=== PATIENT | male | born 1955 | race Caucasian/White ===

== ENCOUNTER 2023-05-09 06:19 | Outpatient (OUT) | payer BC, SELFPAY ==
[2023-05-09 07:30] LABS: Basophils Percent Auto 0.8 % (0.2-2.0); Eosinophils Absolute Auto 0.2 10^3/uL (0.0-0.7); Hematocrit 38.2 % (42.0-54.0); Hemoglobin 12.4 g/dL (14.0-18.0); Immature Granulocytes Abs Auto 0.04 10^3/uL (0.00-0.03); Immature Granulocytes Pct Auto 0.8 % (0.0-0.5); Lymphocytes Absolute Auto 1.9 10^3/uL (1.2-3.8); Lymphocytes Percent Auto 35.4 % (20.5-60.0); Mean Corpuscular HGB Conc 32.5 g/dL (29.9-35.2); Mean Corpuscular Volume 92.5 fL (80.0-94.0); Mean Platelet Volume 9.7 fL (9.5-13.5); Monocytes Absolute Auto 0.6 10^3/uL (0.3-0.8); Monocytes Percent Auto 11.8 % (1.7-12.0); Neutrophils Absolute Auto 2.5 10^3/uL (1.4-6.5); Neutrophils Percent Auto 48.2 % (43.0-75.0); Platelet Count 244 10^3/uL (150-450); Red Blood Count 4.13 10^6/uL (4.70-6.10); White Blood Count 5.3 10^3/uL (4.0-11.0)
[2023-05-09 11:16] LABS: Estimated Average Glucose 94 mg/dL; Glycohemoglobin A1C 4.9 % (4.5-6.2)
[2023-05-09 12:39] LABS: Prostate Specific Antigen Scrn 0.47 ng/mL (<=4.00)
[2023-05-09 13:10] LABS: Alanine Aminotransferase 28 U/L (16-63); Albumin Globulin Ratio 1.1; Alkaline Phosphatase 63 U/L (46-116); Anion Gap 12.3; Aspartate Amino Transferase 31 U/L (15-37); BUN Creatinine Ratio 7.5; Bilirubin Total 0.7 mg/dL (0.2-1.0); Carbon Dioxide 26.3 mmol/L (21.0-32.0); Chloride 100 mmol/L (98-107); Chol HDL Ratio 2.9; Cholesterol 147 mg/dL (<=200); Estimated GFR (African America >60 (>=60); Estimated GFR (Non-African Ame >60 (>=60); Globulin 3.5 g/dL; Glucose 75 mg/dL (74-106); HDL Cholesterol 51 mg/dL (40-60); Potassium 4.6 mmol/L (3.5-5.1); Sodium 134 mmol/L (136-145); Total Protein 7.5 g/dL (6.4-8.2); Triglycerides 75 mg/dL (<=150)
== END 2023-05-09 06:20 | disposition home or self-care (01) ==
LOC: LAB 06:24
PROVIDERS: PCP Family Medicine; Visit Provider Family Medicine
DX: Z79.899 Other long term (current) drug therapy (principal); E78.5 Hyperlipidemia, unspecified; R73.09 Other abnormal glucose; Z12.5 Encounter for screening for malignant neoplasm of prostate; R53.83 Other fatigue
CPT/HCPCS: 36415; 80053; 80061; 83036; 84153; 85025; G0103

== ENCOUNTER 2024-10-12 17:23 | Inpatient (IN) | payer MEDICARE, SELFPAY ==
[2024-10-12] VITALS (26 sets, daily range): BP systolic 148–193; BP diastolic 86–123; PULSE 55–96; TEMP 35.5–35.9; O2SAT 92–100; BMI 16.7; BMI 19.5
--- NOTE | 2024-10-12 17:43 | XR_ITS ---
The [address] [address] Patient Name: KRISTEN SILVA MRN: [id number] date: 1955 Sex: M Assigned Patient Location: ER Current Patient Location: ER Accession/Order Number: [id number] Exam Date: 10/12/2024 18:07 Report Date: 10/12/2024 19:51 At the request of: PRAVEENA BYERS Procedure: XR chest 1V CHEST X-RAY, 10/12/2024. HISTORY: Shortness of breath. Weakness. COMPARISON: CT chest, 10/12/2024. FINDINGS: Single view of the chest was obtained. There are bilateral pleural effusions, right greater than left. There is atelectasis in both lower lobes. Cardiomegaly. No pneumothorax. No evidence pneumonia. XR/XR chest 1V IMPRESSION: Cardiomegaly. Bilateral pleural effusions, right greater than left. There is atelectasis at both lung bases. Electronically authenticated by: LEANNE LITTLE Date: 10/12/2024 19:51
--- NOTE | 2024-10-12 17:43 | ECG_ITS ---
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
--- NOTE | 2024-10-12 17:46 | ED_ITS ---
HPI HPI - General Adult General Chief complaint: Shortness of Breath/Dyspnea Stated complaint: SOB WEAKNESS Time Seen by Provider: 10/12/24 17:34 Source: patient Mode of arrival: Wheelchair History of Present Illness HPI narrative: Patient is a 68-year-old male brought to the ER by family for evaluation of shortness of breath and generalized weakness he reports having pain all over states symptoms started about a week or 2 ago and have not improved. He admits to trouble with his insurance and has been off all of his medication including Plavix for claudication in his legs for the past several months. ( May 2024) Patient states when his respiratory symptoms developed with shortness of breath he started to cut back on his smoking. Patient denies any focal chest pain states he gets short of breath with exertion he appears very thin and cachectic admits to weight loss states he does not have an appetite and has not eaten much lately. Family at bedside visibly concerned about his wellbeing. Onset (ago): week(s) Related Data Allergies Allergy/AdvReac Type Severity Reaction Status Date / Time No Known Drug Allergies Allergy Verified 10/12/24 17:37 Opioid HPI Opioid Management Most Recent Opioid Data: Last NOV Pain Assessment 10/12/24 18:15 Review of Systems ROS Constitutional Reports: change in weight and fatigue; Denies: fever or chills Eyes Denies: change in vision Ears, nose, mouth, and throat Denies: throat pain or neck pain Cardiovascular Denies: chest pain, palpitations or edema Respiratory Reports: shortness of breath; Denies: cough Gastrointestinal Denies: abdominal pain, nausea, vomiting or diarrhea Genitourinary Denies: painful urination Musculoskeletal Reports: other (+ generalized myalgias) Integumentary/Breast Denies: rash Neurological Denies: headache Psychiatric Denies: anxiety Hematologic/Lymphatic Denies: easy bruising PFSH PFSH Social History Little interest or pleasure in doing things: not at all Feeling down, depressed, or hopeless: not at all Exam Narrative Exam Narrative: Nurses notes and vital signs reviewed and patient is not hypoxic. General: The patient appears ill, thin and cachectic. Skin: Warm, dry, no pallor noted but mild graf appearance Head: Normocephalic, atraumatic Neck: Supple, trachea mid-line, no tenderness, no lymphadenopathy Eye: Pupils are equal, round and reactive to light, EOMI Ears, Nose, Mouth, and Throat: TM are clear, normal light reflex, oral mucosa is dry, no posterior oropharynx erythema or hypertrophy, uvula is mid-line Cardiovascular: Regular Rate and Rhythm Respiratory: Patient is in no distress, no accessory muscle use, lungs are clear to auscultation but very diminished/ absent in bases. no wheezing, rales or rhonchi. Chest Wall: no tenderness Back: non-tender, no CVA tenderness Musculoskeletal: normal ROM, no tenderness, no swelling, Denies pain, notes pain in lower legs with exertions. denies any skin breakdown on toes or feet. GI: Normal bowel sounds, no tenderness to palpation, no masses appreciated. No rebound, guarding, or rigidity noted. Neurological: A&O x4 Psychiatric: Cooperative Constitutional Vital Signs, click to edit/add: Last Vital Signs Temp 96.7 F L 10/12/24 17:28 Pulse 71 10/12/24 20:20 Resp 15 10/12/24 20:20 BP 172/103 H 10/12/24 20:20 Pulse Ox 100 10/12/24 20:20 O2 Del Method Nasal Cannula 10/12/24 18:21 O2 Flow Rate 1.5 10/12/24 18:21 Course Vital Signs Vital signs: Vital Signs Temperature 96.7 F L 10/12/24 17:28 Pulse Rate 93 H 10/12/24 17:28 Respiratory Rate 24 H 10/12/24 17:28 Blood Pressure 160/115 H 10/12/24 17:28 Pulse Oximetry 98 10/12/24 17:28 Oxygen Delivery Method Room Air 10/12/24 17:28 Temperature 96.7 F L 10/12/24 17:28 Pulse Rate 71 10/12/24 20:20 Respiratory Rate 15 10/12/24 20:20 Blood Pressure 172/103 H 10/12/24 20:20 Pulse Oximetry 100 10/12/24 20:20 Oxygen Delivery Method Nasal Cannula 10/12/24 18:21 Oxygen Delivery Flow Rate 1.5 10/12/24 18:21 Medical Decision Making MDM Narrative Medical decision making narrative: Patient appears ill thin and frail admits to weight loss and being off his chronically prescribed medication for several months last seeing a vascular specialist in the fall 2023 he admits to generalized weakness and fatigue worsening symptoms over the past 2 weeks with some shortness of breath and generalized bodyaches. He is not hypoxic on room air Reevaluated after his breathing treatment noted breathing has improved, nurse has him on 1 to 2 L of bedside oxygen at rest. He appears in no respiratory distress we will hold on steroid as he is without wheezing at this time. Reviewed past medical record patient had a CTA of the chest and PET scan in 2021 noted for mediastinal mass and they recommended surveillance in 3 months, no further test passed this initial testing given patient's weight loss and Dyspnea symptoms. Asked patient about the follow-up to this test and he reports he was told there was no cancer and did not get any subsequent scans. Patient had manual blood pressures taken at 180/100 bilateral arms after CTA chest.. he has initiall BP 160/ 115, but then climbed 193/[address] Malhotra- ED attending given pleural effusion/ cardiomeagly and medialstinal mass., labetalol 10 mg given IV and 20 mg IV Lasix following review of CTA of the chest. repeat BP was 172/ 103 SPo2 remains 100%, HR 70. Patient reevaluated notes overall he feels improved but also was not exerting himself he notes he is tremendously weak even with lifting his leg up off the bed. We discussed his clinical presentation that he has been off his medication 17 May cardiomegaly, CHF and pleural effusions recommend admission for inpatient hospitalization and further treatment. He has seen Dr. Curtis in the past, and pcp is Dr. Ward. Case was discussed with the night hospitalist Ophelia who is agreeable with admission. Differential Diagnosis Differential Diagnosis: COPD, Lung CA, CHF, PE, Acute coronary syndrome Medical Records Medical records reviewed: Yes I reviewed the patient's medical records Medical records narrative: KRISTEN SILVA MRN: [id number] date: 1955 Sex: M Assigned Patient Location: MAIN Current Patient Location: MAIN Accession/Order Number: [id number] Exam Date: 02/18/2022 07:56 Report Date: 02/20/2022 14:19 At the request of: RAMY CURTIS Procedure: PET CT SKULL BASE MID THIGH NUCLEAR MEDICINE PET/CT HISTORY: Anterior mediastinal mass. COMPARISON: CT chest 01/23/2022. METHOD: 12.84 mCi of F-18 FDG was administered intravenously. Blood sugar level at the time of the injection: 84. At 52 minutes from injection, PET images were obtained from the skull base through the midthigh levels in the axial plane. Reformatted images were performed in the sagittal and coronal planes. A low-dose, noncontrast CT scan was performed for attenuation correction and anatomical localization. A low dose, noncontrast and nondiagnostic CT scan was performed for attenuation correction and anatomic localization. Mediastinal blood pool SUV max 2.0 using the patient's body weight as the normalization method. FINDINGS: HEAD AND NECK: There are no metabolically active lymph nodes in the neck. There is right maxillary sinus mucosal thickening. CHEST: There are no metabolically active mediastinal, hilar, or axillary lymph nodes. There is a nonmetabolically active anterior mediastinal mass measuring 2.2 x 1.7 cm. There are minimally metabolically active partially calcified hilar and mediastinal lymph nodes. The major airways are patent. There is no pericardial effusion. There is no evidence of abnormal metabolic uptake in the esophagus. There are coronary artery calcifications. There are emphysematous changes. There is no evidence of abnormal metabolic uptake in the lung parenchyma. There are no pleural effusions. There is no pneumothorax. ABDOMEN AND PELVIS: There is no evidence of abnormal metabolic activity in the liver or adrenal glands. There is no evidence of abnormal metabolic active lymph nodes in the abdomen or pelvis. There is no free fluid. There is physiologic uptake in the urinary system and bowel. MUSCULOSKELETAL: There is no evidence of abnormal metabolically active bony lesions. IMPRESSION: Nonmetabolically active anterior mediastinal mass measuring 2.2 x 1.7 cm. Minimally metabolically active partially calcified hilar and mediastinal lymph nodes most likely representing granulomatous disease. Recommend follow-up CT chest with contrast in 3 months to confirm. stability. Emphysema. Coronary artery calcifications. Electronically authenticated by: DINAH NERI Date: 2022-02-20 14:19 Electronically authenticated by: DINAHC.D. Barkley Insurance AgencyZAIDA Date: 02/20/2022 14:19 Lab Data Lab results reviewed: Yes I reviewed the patient's lab results Labs: Lab Results 10/12/24 10/12/24 10/12/24 Range/Units 17:52 17:58 19:33 WBC 7.7 (4.0-11.0) 10^3/uL RBC 4.63 L (4.70-6.10) 10^6/uL Hgb 13.5 L (14.0-18.0) g/dL Hct 39.2 L (42.0-54.0) % MCV 84.7 (80.0-94.0) fL MCH 29.2 (25.9-34.0) pg MCHC 34.4 (29.9-35.2) g/dL RDW 13.8 (11.0-15.0) % Plt Count 276 (150-450) 10^3/uL MPV 10.4 (9.5-13.5) fL Neut % (Auto) 72.5 (43.0-75.0) % Lymph % (Auto) 18.6 L (20.5-60.0) % Mitchell % (Auto) 8.1 (1.7-12.0) % Eos % (Auto) 0.1 L (0.9-7.0) % Baso % (Auto) 0.3 (0.2-2.0) % Neut # (Auto) 5.6 (1.4-6.5) 10^3/uL Lymph # (Auto) 1.4 (1.2-3.8) 10^3/uL Mitchell # (Auto) 0.6 (0.3-0.8) 10^3/uL Eos # (Auto) 0.0 (0.0-0.7) 10^3/uL Baso # (Auto) 0.0 (0.0-0.1) 10^3/uL Abs Immat Gran (auto) 0.03 (0.00-0.03) 10^3/uL Imm/Tot Granulo (auto) 0.4 (0.0-0.5) % PT 14.0 H (9.0-11.6) sec INR 1.36 APTT 28.3 (22.3-36.2) sec D-Dimer 1.21 H* (<=0.59) mg/L FEU Sodium 128 L (136-145) mmol/L Potassium 3.5 (3.5-5.1) mmol/L Chloride 92 L (98-107) mmol/L Carbon Dioxide 21.4 (21.0-32.0) mmol/L Anion Gap 18.1 BUN 11.0 (7.0-18.0) mg/dL Creatinine 0.97 (0.70-1.30) mg/dL Est GFR ( Amer) >60 (>=60 mL/min/1.73m^2) Est GFR (Non-Af Amer) >60 (>=60 mL/min/1.73m^2) BUN/Creatinine Ratio 11.3 Glucose 116 H (74-106) mg/dL Calcium 8.8 (8.5-10.1) mg/dL Total Bilirubin 0.9 (0.2-1.0) mg/dL AST 33 (15-37) U/L ALT 29 (16-63) U/L Alkaline Phosphatase 87 (46-116) U/L Troponin I High Sens 31.6 31.7 (4.0-76.1) pg/mL NT-Pro-B Natriuret Pep >45619.0 H* (<=900.0) pg/mL Total Protein 6.7 (6.4-8.2) g/dL Albumin 3.3 L (3.4-5.0) g/dL Globulin 3.4 g/dL Albumin/Globulin Ratio 1.0 Lipase 17.0 (16.0-77.0) U/L Free T4 1.33 (0.76-1.46) ng/dL TSH & Free T4 Interp 4.540 H (0.358-3.740) uIU/mL Influenza Type A Ag Negative Influenza Type B Ag Negative SARS-CoV-2 Ag (CV2AG) Negative (NEGATIVE) Imaging Data CT scan - chest: Radiologist's impression: ITS Impressions Chest X-Ray 10/12/24 17:43 IMPRESSION: Cardiomegaly. Bilateral pleural effusions, right greater than left. There is atelectasis at both lung bases. Electronically authenticated by: LEANNE LITTLE Date: 10/12/2024 19:51 Chest CTA 10/12/24 18:31 IMPRESSION: No CT findings to suggest pulmonary embolism. Findings of CHF, including cardiomegaly, perihilar pulmonary edema and moderate pleural effusions. Electronically authenticated by: RAMONA BONILLA Date: 10/12/2024 19:34 ECG Data Attestation: I personally reviewed and interpreted this ECG as follows: Interpretation: EKG interpretation: Emergency Department physician interpretation, normal sinus rhythm 91 bpm , no ectopy, no ST segment elevation, T wave inversion noted in the lateral leads normal axis. Discharge Plan Discharge Chief Complaint: Shortness of Breath/Dyspnea Clinical Impression: Acute dyspnea, Congestive heart failure, Pleural effusion, Mediastinal mass, Tobacco abuse, Hyponatremia Patient Disposition: Admitted As Inpatient Time of Disposition Decision: 20:25 Condition: Fair
[2024-10-12 18:06] LABS: Basophils Percent Auto 0.3 % (0.2-2.0); Eosinophils Percent Auto 0.1 % (0.9-7.0); Hematocrit 39.2 % (42.0-54.0); Hemoglobin 13.5 g/dL (14.0-18.0); Immature Granulocytes Abs Auto 0.03 10^3/uL (0.00-0.03); Immature Granulocytes Pct Auto 0.4 % (0.0-0.5); Lymphocytes Absolute Auto 1.4 10^3/uL (1.2-3.8); Lymphocytes Percent Auto 18.6 % (20.5-60.0); Mean Corpuscular HGB Conc 34.4 g/dL (29.9-35.2); Mean Corpuscular Hemoglobin 29.2 pg (25.9-34.0); Mean Corpuscular Volume 84.7 fL (80.0-94.0); Mean Platelet Volume 10.4 fL (9.5-13.5); Monocytes Absolute Auto 0.6 10^3/uL (0.3-0.8); Monocytes Percent Auto 8.1 % (1.7-12.0); Neutrophils Absolute Auto 5.6 10^3/uL (1.4-6.5); Neutrophils Percent Auto 72.5 % (43.0-75.0); Platelet Count 276 10^3/uL (150-450); Red Blood Count 4.63 10^6/uL (4.70-6.10); Red Cell Distribution Width 13.8 % (11.0-15.0); White Blood Count 7.7 10^3/uL (4.0-11.0)
[2024-10-12] MEDS: 0.9 % SODIUM CHLORIDE 1,000 ML 999 ML IV (18:15)
[2024-10-12] MEDS: ACETAMINOPHEN 500 MG TABLET 1000 MG PO (18:15)
[2024-10-12 18:17] LABS: Influenza Virus A Antigen Negative; Influenza Virus B Antigen Negative; Internal Control Within Normal Limits; SARS-CoV-2 Ag NEGATIVE (NEGATIVE)
[2024-10-12] MEDS: IPRATROPIUM/ALBUTEROL SULFATE 3 ML AMPUL.NEB IH (18:19)
[2024-10-12 18:21] LABS: INR 1.36; Partial Thromboplastin Time 28.3 sec (22.3-36.2)
[2024-10-12 18:29] LABS: Alanine Aminotransferase 29 U/L (16-63); Albumin Level 3.3 g/dL (3.4-5.0); Alkaline Phosphatase 87 U/L (46-116); Anion Gap 18.1; Aspartate Amino Transferase 33 U/L (15-37); BUN Creatinine Ratio 11.3; Bilirubin Total 0.9 mg/dL (0.2-1.0); Calcium 8.8 mg/dL (8.5-10.1); Carbon Dioxide 21.4 mmol/L (21.0-32.0); Chloride 92 mmol/L (98-107); Estimated GFR (African America >60 (>=60 mL/min/1.73m^2); Estimated GFR (Non-African Ame >60 (>=60 mL/min/1.73m^2); Globulin 3.4 g/dL; Glucose 116 mg/dL (74-106); Potassium 3.5 mmol/L (3.5-5.1); Sodium 128 mmol/L (136-145); Total Protein 6.7 g/dL (6.4-8.2); Troponin I High Sensitivity 31.6 pg/mL (4.0-76.1)
[2024-10-12 18:31] LABS: NT Pro B Type Natriuretic Pept >35000.0 pg/mL (<=900.0)
--- NOTE | 2024-10-12 18:31 | CT_ITS ---
The [address] [address] Patient Name: KRISTEN SILVA MRN: [id number] date: 1955 Sex: M Assigned Patient Location: ER Current Patient Location: Accession/Order Number: [id number] Exam Date: 10/12/2024 18:55 Report Date: 10/12/2024 19:34 At the request of: PRAVEENA BYERS Procedure: CT angio chest EXAM: CT angio chest HISTORY: r/o PE COMPARISON: None. TECHNIQUE: CT angiography of the chest was performed without IV contrast followed by IV contrast, including 3D post processing CTA image reconstruction. CT dose reduction technique was used, including Automated Exposure Control. FINDINGS: Diagnostic quality: Adequate There is no evidence for pulmonary embolism. The heart is significantly enlarged. There is no pericardial effusion. There are no abnormally enlarged hilar or mediastinal lymph nodes. Coronary arteries: Heavy coronary calcifications. The central tracheobronchial tree is clear. Moderate bilateral pleural effusions, with subjacent compressive atelectasis. Mild perihilar pulmonary edema. There is mild centrilobular emphysema. The pulmonary artery is enlarged suggesting pulmonary hypertension. Heavy calcifications of the descending thoracic aorta and partially visualized upper abdominal aorta. No acute process identified in the visualized upper abdomen. No destructive osseous changes are seen. Redemonstrated is an anterior mediastinal mass, measuring 29 x 19 mm, as described on prior PET/CT from 02/18/2022, shown to be not metabolically active. CT/CT angio chest IMPRESSION: No CT findings to suggest pulmonary embolism. Findings of CHF, including cardiomegaly, perihilar pulmonary edema and moderate pleural effusions. Electronically authenticated by: RAMONA BONILLA Date: 10/12/2024 19:34
[2024-10-12 18:32] LABS: D Dimer 1.21 mg/L FEU (<=0.59)
[2024-10-12 19:13] LABS: Free T4 1.33 ng/dL (0.76-1.46)
[2024-10-12] MEDS: LABETALOL HCL 20 MG/4 ML SYRINGE 10 MG IVP (20:01)
[2024-10-12] MEDS: FUROSEMIDE 20 MG/2 ML VIAL IVP (20:01)
[2024-10-12 20:07] LABS: Troponin I High Sensitivity 31.7 pg/mL (4.0-76.1)
--- NOTE | 2024-10-12 22:45 | PC.NURSE ---
Patient has a ulcer on left great toe. Area scabbed, blackened and scant amount of purulent drainage noted. Area cleaned with 50/50 peroxide, saline mix. 4x4 applied and wrapped loosely.
[2024-10-12] MEDS: METOPROLOL SUCCINATE 25 MG TAB.ER.24H PO (23:07)
[2024-10-12] MEDS: ENOXAPARIN SODIUM 40 MG/0.4 ML SYRINGE SUBQ (23:07)
[2024-10-12] MEDS: CLOPIDOGREL BISULFATE 75 MG TABLET PO (23:07)
[2024-10-12] MEDS: ATORVASTATIN CALCIUM 40 MG TABLET 80 MG PO (23:07)
[2024-10-13] VITALS (22 sets, daily range): BP systolic 102–181; BP diastolic 42–99; PULSE 55–77; TEMP 36.3–36.6; O2SAT 92–98
--- NOTE | 2024-10-13 05:00 | ECG_ITS ---
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1955 Requested By: ANDREAS DAVIS Order Number: [id number] Reading MD: ANDREAS DAVIS Measurements Intervals [place] Rate: 71 P: 76 [place]: 174 QRS: 81 QRSD: 110 T: 258 QT: 449 QTc: 489 Interpretive Statements SINUS RHYTHM WITH FREQUENT SUPRAVENTRICULAR PREMATURE COMPLEXES POSSIBLE LEFT ATRIAL ENLARGEMENT [-0.1mV P WAVE IN V1/V2] ST DEVIATION AND MODERATE T-WAVE ABNORMALITY, CONSIDER LATERAL ISCHEMIA [-0.1+ mV T WAVE IN I/aVL/V5/V6] ST DEVIATION AND MODERATE T-WAVE ABNORMALITY, CONSIDER INFERIOR ISCHEMIA [-0.1+ mV T WAVE IN II/aVF] Compared to ECG 10/12/2024 17:35:58 T-wave abnormality now present ST (T wave) deviation no longer present Possible ischemia still present Electronically Signed On 10-13-2024 13:34:39 EST by ANDREAS DAVIS
[2024-10-13 05:06] LABS: Basophils Percent Auto 0.4 % (0.2-2.0); Eosinophils Percent Auto 0.6 % (0.9-7.0); Hematocrit 37.3 % (42.0-54.0); Hemoglobin 13.3 g/dL (14.0-18.0); Immature Granulocytes Abs Auto 0.02 10^3/uL (0.00-0.03); Immature Granulocytes Pct Auto 0.4 % (0.0-0.5); Lymphocytes Absolute Auto 1.1 10^3/uL (1.2-3.8); Lymphocytes Percent Auto 20.6 % (20.5-60.0); Mean Corpuscular HGB Conc 35.7 g/dL (29.9-35.2); Mean Corpuscular Hemoglobin 30.2 pg (25.9-34.0); Mean Corpuscular Volume 84.6 fL (80.0-94.0); Mean Platelet Volume 10.7 fL (9.5-13.5); Monocytes Absolute Auto 0.6 10^3/uL (0.3-0.8); Monocytes Percent Auto 10.6 % (1.7-12.0); Neutrophils Absolute Auto 3.6 10^3/uL (1.4-6.5); Neutrophils Percent Auto 67.4 % (43.0-75.0); Platelet Count 276 10^3/uL (150-450); Red Blood Count 4.41 10^6/uL (4.70-6.10); White Blood Count 5.3 10^3/uL (4.0-11.0)
[2024-10-13 05:34] LABS: Alanine Aminotransferase 23 U/L (16-63); Albumin Level 2.8 g/dL (3.4-5.0); Alkaline Phosphatase 82 U/L (46-116); Aspartate Amino Transferase 20 U/L (15-37); BUN Creatinine Ratio 10.8; Bilirubin Total 0.9 mg/dL (0.2-1.0); Calcium 8.3 mg/dL (8.5-10.1); Carbon Dioxide 23.6 mmol/L (21.0-32.0); Chloride 96 mmol/L (98-107); Estimated GFR (African America >60 (>=60 mL/min/1.73m^2); Estimated GFR (Non-African Ame >60 (>=60 mL/min/1.73m^2); Globulin 2.8 g/dL; Glucose 91 mg/dL (74-106); Magnesium 1.6 mg/dL (1.8-2.4); Sodium 131 mmol/L (136-145); Total Protein 5.6 g/dL (6.4-8.2)
[2024-10-13 05:38] LABS: NT Pro B Type Natriuretic Pept >35000.0 pg/mL (<=900.0); Potassium 2.6 mmol/L (3.5-5.1)
--- NOTE | 2024-10-13 07:19 | CA_ITS ---
Patient Name: KRISTEN SILVA MR#: [id number] : 1955 Exam Date: 10/13/2024 Ordering Doctor: DR Shiva Ward . ECHOCARDIOGRAM REPORT PROCEDURE: CA ECHO DOPPLER COMPLETE INDICATIONS: Dyspnea COMPARISON: None. DESCRIPTION: COMPLETE ECHOCARDIOGRAM Real-time transthoracic echocardiography with 2D, M-mode, spectral and color flow Doppler performed. QUALITY: Technical quality was good. LEFT VENTRICLE: Normal chamber size. Mild concentric left ventricular hypertrophy. LV EF: Global left ventricular systolic function is severely reduced; visually estimated ejection fraction is 20 to 25%. Global hypokinesis. DIASTOLIC: Grade 2 diastolic dysfunction. E/E' consistent with volume overload ATRIAL SEPTUM: Visually appears intact. LEFT ATRIUM: Severe dilatation. RIGHT ATRIUM: Mild dilatation. RIGHT VENTRICLE: Normal chamber size. Decreased right ventricular systolic function. TRICUSPID VALVE: Normal mobility and thickness. Mild regurgitation. No evidence of pulmonary hypertension. RVSP 33mmHg MITRAL VALVE: Mildly thickened with normal mobility. No evidence of mitral valve stenosis. Mild mitral annular calcification. Mild mitral regurgitation. AORTIC VALVE: Normal trileaflet appearance. No visible sclerosis. Normal leaflet mobility. No evidence of aortic valve stenosis. Trivial aortic regurgitation. AORTIC ROOT: Normal diameter and appearance. PULMONIC VALVE: Normal thickness and mobility. No stenosis. Mild regurgitation. PERICARDIUM: Small pericardial effusion posterior to the right atrium. IVC: Collapses with inspirations. Normal size. PLEURA: A pleural effusion is seen. CONCLUSION: 1. Global left ventricular systolic function is severely reduced; visually estimated ejection fraction is 20 to 25% 2. Mild left ventricular hypertrophy 3. Grade 2 diastolic dysfunction 4. E/E' consistent with volume overload 5. Normal right ventricular size with reduced systolic function 6. Biatrial dilatation 7. Mild tricuspid regurgitation 8. Mild mitral regurgitation 9. Mild pulmonic regurgitation 10. Small pericardial effusion is seen posterior to the right atrium 11. A pleural effusion is seen Adult Echocardiography Procedure Report Left Ventricle LVEDD (3.7 - 5.6 cm): 5.54 cm LVESD (2.2 - 4.0 cm): 4.80 cm LVIVS thickness (0.6 - 1.2 cm): 1.13 cm LVPW thickness (0.5 - 1.0 cm): 1.23 cm e': 0.06 m/s E - e': 12.88 LVOT Max Gradient: 0.70 mm[Hg] LVOT Area (cm2): 0.42 m/s Peak Velocity (LVOT): 0.42 m/s Mean Velocity (LVOT): 0.29 m/s LVOT Diameter 2.01 cm Left Ventricular Ejection Fraction: 32.71 % Left Atrium LA Volume Index (2D A2C): 63.03 ml/m2 Left Atrium Systolic Dimension: 4.66 cm Mitral Valve MV E to A Ratio: 1.73 Mitral Valve A-Wave Peak Velocity: 0.41 m/s Mitral Valve E-Wave Peak Velocity: 0.71 m/s Right Ventricle RV Internal Diastolic Dimension: 3.62 cm Aorta AO Root Diam: 3.61 cm Ascending Ao Diam: 2.61 cm Aortic Valve AoV Area (Peak Aman): 1.80 cm2, 1.80 cm2 AoV Area (VTI): 1.69 cm2, 1.69 cm2 Peak Velocity(Antegrade Flow): 0.74 m/s Peak Gradient(Antegrade Flow): 2.18 mm[Hg] Mean Velocity(Antegrade Flow): 0.50 m/s Mean Gradient(Antegrade Flow): 1.14 mm[Hg] Velocity Time Integral: 15.84 cm Tricuspid Valve Peak Velocity (Regurgitant Flow): 2.73 m/s, 2.59 m/s, 2.51 m/s Pulmonic Valve Peak Velocity: 0.59 m/s Peak Gradient: 1.71 mm[Hg], 1.13 mm[Hg] Right Atrium Right Atrium Systolic Pressure: 74.58 ml, 74.58 ml Dictated by: Freeman Bazan M.D. on 10/13/2024 at 12:41 Approved by: Freeman Bazan M.D. on 10/13/2024 at 12:46
--- NOTE | 2024-10-13 07:24 | P.HP_ITS ---
HPI H&P: HPI History of Present Illness Chief complaint: SOB WEAKNESS, CHF, HYPONATREMIA, PLEURAL EFFUSIONS Narrative: Patient presented to emergency room with increasing shortness of breath, found to have significant acute systolic heart failure, confirmed on CT scan and lab results, uncertain how long this is really been going on for probably greater than a month, also foot ulcer noted. When I saw patient up in the medical surgical floor, he was resting comfortably in bed, no significant conversational dyspnea, cough throughout the evaluation of, also patient describes not able to feel his feet. This been going on for quite some time as well. Opioid HPI Opioid Management Most Recent Pain and Opioid Data: Last Pain Assessment 10/13/24 07:19 Last MAR Pain Assessment 10/12/24 18:15 Last ORT Total Score 0 10/12/24 21:17 10/12/24 Last ORT Risk Category Low Risk 10/12/24 21:17 10/12/24 Review of Systems ROS Status of ROS 10 or more systems reviewed and unremark able except as noted in history and below PFSH PFSH Family History (Updated 10/12/24 @ 21:57 by Altagracia Beach RN) Mother Family history of cancer Father Family history of cancer Social History (Updated 10/12/24 @ 22:00 by Altagracia Beach RN) Within the past year, how often did you have a drink containing alcohol: 4 or more times a week Within the past year, how many standard drinks containing alcohol did you have on a typical day: 3 or 4 Within the past year, how often did you have six or more drinks on one occasion: never Total score: 2 Score interpretation: A score of 4 or more indicates drinking is likely to affect patient's safety. Smoking status: Current every day smoker Non-prescribed substance use: cannabis (any form) Known occupational exposures/hazards: Yes Known occupational exposures/hazards details: [facility] Highest level of school completed/degree received: high school graduate Are you now , , , , never or living with a partner: Little interest or pleasure in doing things: several days Feeling down, depressed, or hopeless: several days Feel stressed/tense/nervous/anxious/difficulty sleeping: to some extent Do you think of yourself as: straight/heterosexual Gender Identity: male Meds Home Medications and Allergies Home Medications ?Medication ?Instructions ?Recorded ?Confirmed ?Type atorvastatin 80 mg tablet 80 mg PO QDAY 10/12/24 10/12/24 History clopidogrel 75 mg tablet 75 mg PO QDAY 10/12/24 10/12/24 History lansoprazole 30 mg capsule,delayed 30 mg PO DAILY 10/12/24 10/13/24 History release Allergies Allergy/AdvReac Type Severity Reaction Status Date / Time No Known Drug Allergies Allergy Verified 10/12/24 17:37 Exam Constitutional Vital Signs, click to edit/add: Last Vital Signs Temp 97.7 F 10/13/24 06:37 Pulse 68 10/13/24 06:37 Resp 18 10/13/24 06:37 BP 171/81 H 10/13/24 06:37 Pulse Ox 95 10/13/24 06:37 O2 Del Method Nasal Cannula 10/13/24 06:37 O2 Flow Rate 1 10/13/24 06:37 Documenting provider has reviewed patient's vital signs: yes Common normals: no apparent distress (Cough throughout the evaluation) Chest Common normals: inspection of chest normal Respiratory Common normals: normal respiratory effort (Cough throughout the evaluation), no retractions, no use of accessory muscles and clear to auscultation bilaterally Effort & inspection: able to speak in complete sentences Auscultation: diminished lung sounds Cardio Common normals: regular rate and regular rhythm GI Common normals: Normal to inspection, nondistended, normoactive bowel sounds present and soft to palpation; tender (Epigastric tenderness) Extremity Common normals: abnormal to inspection (Left foot wound, dressing in place) Results Labs Labs: Short CBC 10/12/24 10/13/24 Range/Units 17:52 04:40 WBC 7.7 5.3 (4.0-11.0) 10^3/uL Hgb 13.5 L 13.3 L (14.0-18.0) g/dL Hct 39.2 L 37.3 L (42.0-54.0) % Plt Count 276 276 (150-450) 10^3/uL BMP 10/12/24 10/13/24 17:52 04:40 Sodium 128 L 131 L Potassium 3.5 2.6 L* Chloride 92 L 96 L Carbon Dioxide 21.4 23.6 BUN 11.0 10.0 Creatinine 0.97 0.93 Glucose 116 H 91 Calcium 8.8 8.3 L Liver Function 10/12/24 10/13/24 Range/Units 17:52 04:40 Total Bilirubin 0.9 0.9 (0.2-1.0) mg/dL AST 33 20 (15-37) U/L ALT 29 23 (16-63) U/L Alkaline Phosphatase 87 82 (46-116) U/L Albumin 3.3 L 2.8 L (3.4-5.0) g/dL Assessment and Plan Assessment and Plan (1) Hyponatremia: (2) Pleural effusion: (3) Congestive heart failure: (4) Acute dyspnea: (5) Foot ulcer: Plan Admission findings: Sinus tachycardia, respiratory distress, uncontrolled hypertension, hyponatremia, hypokalemia, hypomagnesemia with an elevated BNP and bilateral pleural effusions right greater than left Acute systolic heart failure with hypertensive urgency-patient currently on supplemental oxygen but no documented desaturations, we will work on that this morning, diuresed with IV Bumex, check echocardiogram, Hypertensive urgency-add metoprolol and lisinopril, bump up doses from initial starting dosing, add Imdur, as needed hydralazine Left foot ulcer-consult to wound, start IV antibiotics Mild COPD with acute mild exacerbation-does have sputum production we will check on culture, but lung exam was clear LVH-check echocardiogram Bilateral pleural effusion secondary to the acute systolic heart failure- diuresing as outlined above Hyponatremia on admission-improved this morning Hypokalemia-deteriorated this morning, IV potassium and repeat Chem-8 later on this afternoon for likely repeat IV bolus dosing and starting on oral medications this morning Hypomagnesemia-supplement Elevated TSH but T4 is normal-would hold off on treatment at this time Iron deficiency anemia-monitor daily Acute epigastric tenderness-changed to Protonix Peripheral vascular disease-restarting Plavix Peripheral neuropathy-outpatient workup Hypercholesterolemia-continue with home medications Mediastinal mass redemonstrated on CT scan-this was worked up prior with a PET scan showing not metabolically active, and is unchanged Admission status: Patient with significant dyspnea and bilateral pleural effusions with hypertensive urgency, significant elevated BNP within normal troponin, medically necessary treatment will span 2 midnights. Inpatient status.
--- NOTE | 2024-10-13 07:49 | XR_ITS ---
The [address] [address] Patient Name: KRISTEN SILVA MRN: [id number] date: 1955 Sex: M Assigned Patient Location: [place] Current Patient Location: [place] Accession/Order Number: [id number] Exam Date: 10/13/2024 08:00 Report Date: 10/13/2024 08:26 At the request of: ANDREAS DAVIS Procedure: XR foot LT min 3V PROCEDURE: XR foot LT min 3V HISTORY: foot ulcer ; ulcer near first digit COMPARISON: None. FINDINGS: BONES:Osseous irregularity and loss of cortical margin at the medial base of the first distal phalanx concerning for osteomyelitis. Moderate degenerative changes of the first metatarsophalangeal joint and mild bunion formation. SOFT TISSUES:Skin surface irregularity distal medial first toe which may represent site of ulceration. EFFUSION:None visible. OTHER: Negative. XR/XR foot LT min 3V IMPRESSION: 1. Suspect soft tissue ulceration of distal medial first toe with underlying osteomyelitis of first distal phalanx. Electronically authenticated by: MATT URIAS Date: 10/13/2024 08:26
--- NOTE | 2024-10-13 08:41 | CM.NOTE ---
Important Message From Medicare discussed with pt, pt verbalizes understanding and signs paper. Original given to pt and copy placed in pt's chart.
[2024-10-13 09:15] LABS: Bilirubin Urine NEGATIVE (NEGATIVE); Blood Urine NEGATIVE (NEGATIVE); Clarity Urine CLEAR (CLEAR); Color Urine LT. YELLOW (YELLOW); Glucose Urine UA NEGATIVE (NEGATIVE); Ketones Urine NEGATIVE (NEGATIVE); Leukocyte Esterase Urine NEGATIVE (NEGATIVE); Nitrite Urine NEGATIVE (NEGATIVE); Protein Urine NEGATIVE (NEG/TRACE); Specific Gravity Urine <=1.005 (1.005-1.025)
[2024-10-13 09:25] LABS: Bacteria Urine NONE SEEN #/HPF (NONE SEEN); Cast Seen? NONE SEEN #/LPF (NONE SEEN); Crystals Seen? None Seen #/HPF (None Seen); Mucus Urine NONE SEEN (NONE SEEN); RBC Urine NONE SEEN #/HPF (0-2); Squamous Epithelial Cell Urine NONE SEEN #/LPF (NONE/RARE); WBC Urine 0-2 #/HPF (NONE SEEN)
[2024-10-13] MEDS: POTASSIUM CHLORIDE 40 MEQ in 0.9 % SODIUM CHLORIDE 250 ML 67.5 MEQ IV (09:37)
[2024-10-13] MEDS: BUMETANIDE 10 MG in 0.9 % SODIUM CHLORIDE 160 ML 20 MG IV (09:37)
[2024-10-13] MEDS: JUVEN PACKET 1 PACKET PO (09:44)
[2024-10-13] MEDS: SPIRONOLACTONE 25 MG TABLET PO (09:44)
[2024-10-13] MEDS: ISOSORBIDE MONONITRATE 30 MG TAB.ER.24H PO (09:44)
[2024-10-13] MEDS: CLOPIDOGREL BISULFATE 75 MG TABLET PO (09:44)
[2024-10-13] MEDS: MAGNESIUM OXIDE 400 MG TABLET PO ×2 (09:44→21:03)
[2024-10-13] MEDS: METOPROLOL TARTRATE 50 MG TABLET PO ×2 (09:44→21:03)
[2024-10-13] MEDS: POTASSIUM CHLORIDE 10 MEQ ER TABLET 20 MEQ PO ×2 (09:44→21:03)
[2024-10-13] MEDS: LISINOPRIL 5 MG TABLET 10 MG PO (09:45)
[2024-10-13] MEDS: ENSURE HP 237 ML LIQUID PO ×2 (09:45→21:03)
[2024-10-13] MEDS: PANTOPRAZOLE SODIUM 40 MG VIAL IV (09:47)
--- NOTE | 2024-10-13 10:42 | PC.NURSE ---
dressing removed from left gr toe...large callous on side of toe. No drainage. pt states its never had anything drip off of it ever Toe squeezed and still no drng at this time. Dressing reapplied.
[2024-10-13] MEDS: VANCOMYCIN HCL 1,000 MG in 0.9 % SODIUM CHLORIDE 250 ML 250 MG IV (13:26)
--- NOTE | 2024-10-13 13:51 | SWNOTE1 ---
SW attempted to see pt, pt sleeping. SW to stop back.
--- NOTE | 2024-10-13 14:18 | P.CN_ITS ---
Consult Note: [facility] Data of Consult Consult date: 10/13/24 Requesting Physician: Shiva Ward MD Primary Care Provider: Shiva Ward MD Consult Narrative Reason for consult: Left hallux ulcer Narrative: Patient is a 68-year-old male with multiple medical core morbidities admitted for heart failure. He relates to numbness in bilateral feet and does not see a energy conservation representative. He relates to having the wound on his great toe for some time but unsure how long. He denies signs of infection to the area including redness, drainage, swelling and pain. He relates that he is supposed to see Dr. Bergeron from vascular surgery but cannot recall who made this referral. X-rays obtained upon admission show cortical changes to the distal phalanx of the great toe concerning for osteomyelitis. Patient relates to cough and shortness of breath, lack of energy but denies nausea, vomiting, fever, chills. He denies foot and calf pain cc:: CC: Shiva Ward MD Review of Systems ROS Status of ROS 10 or more systems reviewed and unremark able except as noted in history and below PFSH PFSH Family History (Updated 10/12/24 @ 21:57 by Altagracia Beach RN) Mother Family history of cancer Father Family history of cancer Social History (Updated 10/12/24 @ 22:00 by Altagracia Beach RN) Within the past year, how often did you have a drink containing alcohol: 4 or more times a week Within the past year, how many standard drinks containing alcohol did you have on a typical day: 3 or 4 Within the past year, how often did you have six or more drinks on one occasion: never Total score: 2 Score interpretation: A score of 4 or more indicates drinking is likely to affect patient's safety. Smoking status: Current every day smoker Non-prescribed substance use: cannabis (any form) Known occupational exposures/hazards: Yes Known occupational exposures/hazards details: [employer] Highest level of school completed/degree received: high school graduate Are you now , , , , never or living with a partner: Little interest or pleasure in doing things: several days Feeling down, depressed, or hopeless: several days Feel stressed/tense/nervous/anxious/difficulty sleeping: to some extent Do you think of yourself as: straight/heterosexual Gender Identity: male Meds Home Medications and Allergies Home Medications ?Medication ?Instructions ?Recorded ?Confirmed ?Type atorvastatin 80 mg tablet 80 mg PO QDAY 10/12/24 10/12/24 History clopidogrel 75 mg tablet 75 mg PO QDAY 10/12/24 10/12/24 History lansoprazole 30 mg capsule,delayed 30 mg PO DAILY 10/12/24 10/13/24 History release Allergies Allergy/AdvReac Type Severity Reaction Status Date / Time No Known Drug Allergies Allergy Verified 10/12/24 17:37 Exam Narrative Exam Narrative: Skin: Hyperkeratotic lesion noted on the medial aspect of left great toe which upon removal reveals a 1.2 x 0.8 cm ulceration with fibrotic base. No redness, swelling or purulent drainage is noted. Negative probe to bone Vascular: Pedal pulses are nonpalpable. Absent digital hair. Atrophic skin changes. Toes are cool to the touch while legs are warm. No calf pain on squeeze Neuro: Absent protective and vibratory sensation to the forefoot Musculoskeletal: No pain on palpation. No significant deformity. Patient is able to wiggle his toes without pain Constitutional Vital Signs, click to edit/add: Last Vital Signs Temp 98 F 10/13/24 11:36 Pulse 55 L 10/13/24 14:00 Resp 20 10/13/24 11:36 BP 126/66 10/13/24 11:36 Pulse Ox 93 L 10/13/24 11:36 O2 Del Method Room Air 10/13/24 11:36 O2 Flow Rate 1 10/13/24 09:35 Results Labs Labs: Short CBC 10/12/24 10/13/24 Range/Units 17:52 04:40 WBC 7.7 5.3 (4.0-11.0) 10^3/uL Hgb 13.5 L 13.3 L (14.0-18.0) g/dL Hct 39.2 L 37.3 L (42.0-54.0) % Plt Count 276 276 (150-450) 10^3/uL BMP 10/12/24 10/13/24 17:52 04:40 Sodium 128 L 131 L Potassium 3.5 2.6 L* Chloride 92 L 96 L Carbon Dioxide 21.4 23.6 BUN 11.0 10.0 Creatinine 0.97 0.93 Glucose 116 H 91 Calcium 8.8 8.3 L Liver Function 10/12/24 10/13/24 Range/Units 17:52 04:40 Total Bilirubin 0.9 0.9 (0.2-1.0) mg/dL AST 33 20 (15-37) U/L ALT 29 23 (16-63) U/L Alkaline Phosphatase 87 82 (46-116) U/L Albumin 3.3 L 2.8 L (3.4-5.0) g/dL Urine 10/13/24 Range/Units 08:40 Urine Color Lt. yellow (YELLOW) Urine Clarity Clear (CLEAR) Urine pH 6.0 (5.0-9.0) Ur Specific [place] <=1.005 A (1.005-1.025) Urine Protein Negative (NEG/TRACE) mg/dL Urine Glucose (UA) Negative (NEGATIVE) mg/dL Assessment and Plan Assessment and Plan (1) Hyponatremia: (2) Pleural effusion: (3) Congestive heart failure: (4) Acute dyspnea: (5) Foot ulcer: Assessment and Plan: Orders to apply Santyl daily and cover with Band-Aid or gauze dressing. No compressive or circumferential dressings are to be applied Qualifiers: Laterality: left Non-pressure ulcer stage: with necrosis of bone Qualified Code(s): L97.524 - Non-pressure chronic ulcer of other part of left foot with necrosis of bone (6) Other chronic osteomyelitis, right ankle and foot: (7) Severe peripheral arterial disease: Plan Seen and evaluated. Patient education provided and all questions answered to satisfaction. Patient's findings are consistent with arterial ulcer with stable chronic osteomyelitis of his distal phalanx of his left great toe. I related to the patient that he could lose the tip of the toe but given his vascular status I do not recommend any surgery or invasive treatment at this time. I strongly recommended that he follow-up with Dr. Bergeron or somebody from vascular surgery as soon as possible after discharge. Until that time I recommended close observation to ensure acute infection does not occur and recommended noninvasive debridement with Santyl. Patient should follow-up in wound center 1-2 weeks from discharge Call with any updates - I will sign off on the patient for now as no surgery is indicated during this admission given stable chronic infection and significant potentially life threatening issues with his heart
[2024-10-13] MEDS: PIPERACILLIN SODIUM/TAZOBACTAM 3.375 GM in 0.9 % SODIUM CHLORIDE 50 ML IV ×2 (14:22→21:56)
--- NOTE | 2024-10-13 14:27 | PC.NURSE ---
discussed shoe size and order for surgical shoe...pt refuses. States he does not want to wear anything like that
--- NOTE | 2024-10-13 14:27 | SWNOTE1 ---
SW met with pt to discuss dc needs. Pt lives at home with his . Pt does not use any DME at home and has no services coming in. SW advised pt that therapy did recommend HH or outpt therapy at discharge. Pt voiced when he feels he needs it, he will set it up. SW did let him know that it is recommended. Pt stated when him and his feel they can't help each other anymore, they will get services. SW advised pt if he gets home and does feel he needs it, he can reach out to his PCP. Pt voiced understanding. At this time no anticipated discharge needs. SW to follow as needed.
[2024-10-13 14:50] LABS: Anion Gap 12.5; BUN Creatinine Ratio 12.1; Calcium 8.4 mg/dL (8.5-10.1); Carbon Dioxide 26.8 mmol/L (21.0-32.0); Chloride 99 mmol/L (98-107); Estimated GFR (African America >60 (>=60 mL/min/1.73m^2); Estimated GFR (Non-African Ame >60 (>=60 mL/min/1.73m^2); Glucose 91 mg/dL (74-106); Potassium 3.3 mmol/L (3.5-5.1); Sodium 135 mmol/L (136-145)
[2024-10-13] MEDS: COLLAGENASE CLOSTRIDIUM HIST. 250 UNITS/GM 30 GRAM TUBE 1 APPLIC TOPICAL (15:12)
--- NOTE | 2024-10-13 18:33 | P.REHIPOC_ITS ---
Interdisciplinary Plan - Plan Rehab Problems and Plan (1) Hyponatremia: (2) Pleural effusion: (3) Congestive heart failure: (4) Acute dyspnea: (5) Foot ulcer: Qualifiers: Laterality: left Non-pressure ulcer stage: with necrosis of bone Qualified Code(s): L97.524 - Non-pressure chronic ulcer of other part of left foot with necrosis of bone (6) Other chronic osteomyelitis, right ankle and foot: (7) Severe peripheral arterial disease: Plan Chart reviewed by Cardiology. 68 yo male presenting with shortness of breath. He was found to be in acute decompensated systolic heart failure, with EF of 20- 25%. This appears to be a new diagnosis. Echo suggestive of volume overload. Given his extensive history of PAD (a CAD equivalent), recommend transfer for R/L heart cath/coronary angiogram to delinate coronary anatomy and rule out high risk coronary lesions contributing to systolic heart failure. Continue diuresis per primary team. Recommend initiating Toprol XL 25 mg daily, as permitted by BP and HR. Further addition of GDMT to occur after heart cath. Please do not hesitate to contact Cardiology with questions. Sung Hammond MD
--- NOTE | 2024-10-13 20:05 | RESP.RT ---
No PRN breathing tx given. Pt denies need. No respiratory distress noted.
[2024-10-13] MEDS: ATORVASTATIN CALCIUM 40 MG TABLET 80 MG PO (21:03)
[2024-10-13] MEDS: ENOXAPARIN SODIUM 40 MG/0.4 ML SYRINGE SUBQ (21:03)
[2024-10-14] VITALS (10 sets, daily range): BP systolic 118–138; BP diastolic 45–55; PULSE 50–69; TEMP 36.6–36.8; O2SAT 85–97; BMI 18.2
[2024-10-14] MEDS: VANCOMYCIN HCL 1,000 MG in 0.9 % SODIUM CHLORIDE 250 ML 250 MG IV (01:53)
--- NOTE | 2024-10-14 05:00 | ECG_ITS ---
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 [employer]: : 1955 Requested By: ANDREAS DAVIS Order Number: [id number] Reading MD: ANDREAS DAVIS Measurements Intervals Linch Rate: 59 P: -8 VA: 133 QRS: 22 QRSD: 87 T: 249 QT: 462 QTc: 458 Interpretive Statements SINUS BRADYCARDIA ANTEROSEPTAL MYOCARDIAL INFARCTION [40+ ms Q WAVE IN V1-V4], OF INDETERMINATE AGE MODERATE T-WAVE ABNORMALITY, CONSIDER LATERAL ISCHEMIA [-0.1+ mV T WAVE IN I/aVL/V5/V6] MODERATE T-WAVE ABNORMALITY, CONSIDER INFERIOR ISCHEMIA [-0.1+ mV T WAVE IN II/aVF] WARNING: DATA QUALITY MAY AFFECT INTERPRETATION Compared to ECG 10/13/2024 06:26:43 Myocardial infarct finding now present Sinus rhythm no longer present T-wave abnormality still present Possible ischemia still present Electronically Signed On 10-17-2024 6:26:25 EST by ANDREAS DAVIS
[2024-10-14] MEDS: PIPERACILLIN SODIUM/TAZOBACTAM 3.375 GM in 0.9 % SODIUM CHLORIDE 50 ML IV (05:01)
[2024-10-14 05:12] LABS: Basophils Percent Auto 0.4 % (0.2-2.0); Eosinophils Percent Auto 0.3 % (0.9-7.0); Hematocrit 42.6 % (42.0-54.0); Hemoglobin 14.8 g/dL (14.0-18.0); Immature Granulocytes Abs Auto 0.03 10^3/uL (0.00-0.03); Immature Granulocytes Pct Auto 0.3 % (0.0-0.5); Lymphocytes Absolute Auto 1.4 10^3/uL (1.2-3.8); Lymphocytes Percent Auto 15.9 % (20.5-60.0); Mean Corpuscular HGB Conc 34.7 g/dL (29.9-35.2); Mean Corpuscular Volume 86.2 fL (80.0-94.0); Mean Platelet Volume 10.8 fL (9.5-13.5); Monocytes Absolute Auto 0.7 10^3/uL (0.3-0.8); Monocytes Percent Auto 7.3 % (1.7-12.0); Neutrophils Absolute Auto 6.9 10^3/uL (1.4-6.5); Neutrophils Percent Auto 75.8 % (43.0-75.0); Platelet Count 325 10^3/uL (150-450); Red Blood Count 4.94 10^6/uL (4.70-6.10); Red Cell Distribution Width 14.5 % (11.0-15.0); White Blood Count 9.1 10^3/uL (4.0-11.0)
[2024-10-14 05:40] LABS: Alanine Aminotransferase 22 U/L (16-63); Albumin Globulin Ratio 0.9; Albumin Level 2.8 g/dL (3.4-5.0); Alkaline Phosphatase 81 U/L (46-116); Anion Gap 13.6; Aspartate Amino Transferase 17 U/L (15-37); Bilirubin Total 0.7 mg/dL (0.2-1.0); Calcium 8.4 mg/dL (8.5-10.1); Chloride 101 mmol/L (98-107); Estimated GFR (African America >60 (>=60 mL/min/1.73m^2); Estimated GFR (Non-African Ame 60 (>=60 mL/min/1.73m^2); Globulin 3.2 g/dL; Glucose 91 mg/dL (74-106); Magnesium 1.6 mg/dL (1.8-2.4); Sodium 139 mmol/L (136-145)
[2024-10-14 05:54] LABS: Potassium 2.6 mmol/L (3.5-5.1)
--- NOTE | 2024-10-14 07:47 | P.DS_ITS ---
DS: Providers Provider Date of admission: 10/12/24 20:23 Primary care physician: Shiva Ward MD Consults: 10/13/24 07:17 Occupational Therapy Eval and Treat Routine Reason for consultation: Only if needed for Rehab Has provider been notified: No Physical Therapy Eval and Treat Routine Reason for consultation: Eval and Treat Has provider been notified: No 10/13/24 07:48 Consult to Podiatry Routine Consulting Provider: Brad Hansen Reason for consultation: Foot ulcer Has provider been notified: No Consult to Wound Care Routine Consulting Provider: Timur Interiano Reason for consultation: foot ulcer 10/13/24 13:17 Consult to Cardiology Routine Reason for consultation: chf with Reduced EF DS: Diagnosis Discharge Diagnosis (1) Hyponatremia: (2) Pleural effusion: (3) Congestive heart failure: (4) Acute dyspnea: (5) Foot ulcer: Qualifiers: Laterality: left Non-pressure ulcer stage: with necrosis of bone Qualified Code(s): L97.524 - Non-pressure chronic ulcer of other part of left foot with necrosis of bone (6) Other chronic osteomyelitis, right ankle and foot: (7) Severe peripheral arterial disease: Plan Admission findings: Sinus tachycardia, respiratory distress, uncontrolled hypertension, hyponatremia, hypokalemia, hypomagnesemia with an elevated BNP and bilateral pleural effusions right greater than left Acute systolic heart failure with hypertensive urgency-patient currently on supplemental oxygen but no documented desaturations, diuresed 3.8 L with Bumex drip, will give 1 IV dose this morning in anticipation of transfer Hypertensive urgency-add metoprolol and lisinopril, stable to time of discharge Left foot ulcer-consult to wound, start IV antibiotics-no need for surgical intervention at this time per podiatry Mild COPD with acute mild exacerbation-does have sputum production we will check on culture, but lung exam was clear LVH-check echocardiogram Bilateral pleural effusion secondary to the acute systolic heart failure- diuresing as outlined above Hyponatremia on admission-improved this morning Hypokalemia-repeating fluid bolus this morning Hypomagnesemia-supplement Elevated TSH but T4 is normal-would hold off on treatment at this time Iron deficiency anemia-monitor daily Acute epigastric tenderness-changed to Protonix Peripheral vascular disease-restarting Plavix Peripheral neuropathy-outpatient workup Hypercholesterolemia-continue with home medications Mediastinal mass redemonstrated on CT scan-this was worked up prior with a PET scan showing not metabolically active, and is unchanged Admission status: Patient with significant dyspnea and bilateral pleural effusions with hypertensive urgency, significant elevated BNP within normal troponin, medically necessary treatment will span 2 midnights. Inpatient status. DS: Summary Hospital Course Hospital Course: Patient presented to the emergency room with increasing weakness and shortness of breath. Denies chest pain, he has been short of breath for quite some time. And patient was admitted given IV diuretics Bumex drip over 10 hours at 1 mg an hour, good diuresis of 3.8 L, echocardiogram shows reduced ejection fraction of 25%, this is new for him, consultation to cardiology recommended transfer for cardiac catheterization. Patient did have some hypoxia on admission, was decent yesterday afternoon but is back on supplemental oxygen this morning, had O2 sat of 85% overnight, lung exam is improved but still with rales, patient will be transferred to [facility] for continued cardiac care Time Spent with Patient Time attestation: Total time spent providing and/or coordinating discharge services: Exam Constitutional Vital Signs, click to edit/add: Last Vital Signs Temp 98.2 F 10/14/24 07:27 Pulse 60 10/14/24 07:27 Resp 16 10/14/24 07:27 BP 118/55 10/14/24 07:27 Pulse Ox 93 L 10/14/24 07:27 O2 Del Method Nasal Cannula 10/14/24 07:27 O2 Flow Rate 2 10/14/24 07:27 Documenting provider has reviewed patient's vital signs: yes Common normals: no apparent distress (Cough throughout the evaluation) Chest Common normals: inspection of chest normal Respiratory Common normals: normal respiratory effort (Cough throughout the evaluation), no retractions and no use of accessory muscles; not clear to ascultation bilaterally (Previous note in error) Effort & inspection: able to speak in complete sentences Auscultation: rales (Quarter the way up the lung pedroza, ) and diminished lung sounds Cardio Common normals: regular rate and regular rhythm GI Common normals: Normal to inspection, nondistended, normoactive bowel sounds present and soft to palpation; tender (Epigastric tenderness) Extremity Common normals: abnormal to inspection (Left foot wound, dressing in place) DS: Data Data Completed and Pending Labs on day of discharge: Labs from last 24 hours 10/14/24 10/13/24 10/13/24 04:45 13:54 08:40 WBC 9.1 RBC 4.94 Hgb 14.8 Hct 42.6 MCV 86.2 MCH 30.0 MCHC 34.7 RDW 14.5 Plt Count 325 MPV 10.8 Neut % (Auto) 75.8 H Lymph % (Auto) 15.9 L [place] % (Auto) 7.3 Eos % (Auto) 0.3 L Baso % (Auto) 0.4 Neut # (Auto) 6.9 H Lymph # (Auto) 1.4 [place] # (Auto) 0.7 Eos # (Auto) 0.0 Baso # (Auto) 0.0 Abs Immat Gran (auto) 0.03 Imm/Tot Granulo (auto) 0.3 Sodium 139 135 L Potassium 2.6 L* 3.3 L Chloride 101 99 Carbon Dioxide 27.0 26.8 Anion Gap 13.6 12.5 BUN 17.0 13.0 Creatinine 1.21 1.07 Est GFR ( Amer) >60 >60 Est GFR (Non-Af Amer) 60 >60 BUN/Creatinine Ratio 14.0 12.1 Glucose 91 91 Calcium 8.4 L 8.4 L Magnesium 1.6 L Total Bilirubin 0.7 AST 17 ALT 22 Alkaline Phosphatase 81 NT-Pro-B Natriuret Pep 36086.0 H* Total Protein 6.0 L Albumin 2.8 L Globulin 3.2 Albumin/Globulin Ratio 0.9 Urine Color Lt. yellow Urine Clarity Clear Urine pH 6.0 Ur Specific [place] <=1.005 A Urine Protein Negative Urine Glucose (UA) Negative Urine Ketones Negative Urine Occult Blood Negative Urine Nitrite Negative Urine Bilirubin Negative Urine Urobilinogen 1.0 Ur Leukocyte Esterase Negative Urine RBC None seen Urine WBC 0-2 A Ur Squamous Epith Cells None seen Urine Crystals None seen Urine Bacteria None seen Urine Casts None seen Urine Mucus None seen Discharge Plan Discharge Disposition: Xfer Acute Care Hospital Condition: Fair
--- NOTE | 2024-10-14 09:08 | REH.PTDLY ---
Physical Therapy Daily Note PT Daily Note/Assess Start: 10/13/24 09:18 Freq: Status: Active Protocol: Document 10/14/24 09:01 [email or web address] (Rec: 10/14/24 09:08 OCTAVIOOSORIO [id number]) Physical Therapy Daily Note/Assessment Time In 08:20 Time Out 08:39 Subjective Pt states he might be getting transferred, but not sure . Checked with BRE Nam and states pt's EF is low so might be transferred for cardiac reasons. Pt is now on 2L of O2 as of early this morning, nursing states it's ok to perform walk test without O2 and see how pt does. Therapeutic Exercise 6 Minutes (minutes) Therapeutic Exercise 0 Units Therapeutic Exercise Instructed in B LE standing exs with UE support 10x Treatment with HR, marching and mini squats with general fatigue noted. Therapeutic Activity 10 Minutes (minutes) Therapeutic Activity 1 Units Therapeutic Activity Pt at 96% sitting bedside once O2 is removed. Sit to Comments stand transfers Ind. Gait training with pt pushing IV pole SBA 75 feet with no complaints of SOB. O2 sats fluctuating from 93-96% with gait on RA. Pt Ind with bed mobility and supine to and from sit transfers. Total Therapy 16 Minutes Total Physical 1 Therapy Units Daily Note Summary Pt does well with transfers. Pt uses IV pole for support today with SC in room for when he is not hooked up to IV. Pt denies any pain and SpO2 stays in 90s on RA during rx. Nursing notified and she states to leave pt off O2 for now.
[2024-10-14] MEDS: PANTOPRAZOLE SODIUM 40 MG VIAL IV (09:29)
[2024-10-14] MEDS: SPIRONOLACTONE 25 MG TABLET PO (09:29)
[2024-10-14] MEDS: BUMETANIDE 1 MG/4 ML VIAL 2 MG IVP (09:29)
[2024-10-14] MEDS: POTASSIUM CHLORIDE 10 MEQ ER TABLET 20 MEQ PO (09:29)
[2024-10-14] MEDS: MAGNESIUM OXIDE 400 MG TABLET PO (09:29)
[2024-10-14] MEDS: LISINOPRIL 5 MG TABLET 10 MG PO (09:30)
[2024-10-14] MEDS: ENSURE HP 237 ML LIQUID PO (09:30)
[2024-10-14] MEDS: POTASSIUM CHLORIDE 40 MEQ in 0.9 % SODIUM CHLORIDE 250 ML 67.5 MEQ IV (09:30)
[2024-10-14] MEDS: METOPROLOL TARTRATE 50 MG TABLET PO (09:30)
[2024-10-14] MEDS: CLOPIDOGREL BISULFATE 75 MG TABLET PO (09:30)
[2024-10-14] MEDS: ISOSORBIDE MONONITRATE 30 MG TAB.ER.24H PO (09:30)
[2024-10-14] MEDS: JUVEN PACKET 1 PACKET PO (09:30)
--- NOTE | 2024-10-14 13:33 | SWNOTE1 ---
Pt being transferred to higher level of care.
== END 2024-10-14 12:52 | disposition short-term general hospital (02) | DRG 291 ==
LOC: ER 20:29 → MS 21:14
PROVIDERS: Personal Emergency Response Attendant; Registered Nurse; Admitting Provider Family Medicine; Emergency Provider Emergency Medicine; PCP Family Medicine; Visit Provider Family Medicine
DX: I11.0 Hypertensive heart disease with heart failure (principal); I50.21 Acute systolic (congestive) heart failure; J98.59 Other diseases of mediastinum, not elsewhere classified; E87.1 Hypo-osmolality and hyponatremia; J44.1 Chronic obstructive pulmonary disease with (acute) exacerbation; M86.672 Other chronic osteomyelitis, left ankle and foot; R64 Cachexia; Z68.1 Body mass index [BMI] 19.9 or less, adult; F17.200 Nicotine dependence, unspecified, uncomplicated; I16.0 Hypertensive urgency; R06.03 Acute respiratory distress; E87.6 Hypokalemia; E83.42 Hypomagnesemia; D50.9 Iron deficiency anemia, unspecified; R94.6 Abnormal results of thyroid function studies; R10.13 Epigastric pain; I73.9 Peripheral vascular disease, unspecified; G62.9 Polyneuropathy, unspecified; E78.00 Pure hypercholesterolemia, unspecified; L97.524 Non-pressure chronic ulcer of other part of left foot with necrosis of bone; R09.02 Hypoxemia
CPT/HCPCS: 36415; 71045; 71275; 73630; 80048; 80053; 81001; 83690; 83735; 83880; 84439; 84443; 84484; 85025; 85378; 85610; 85730; 87070; 87075; 87804; 87811; 93005; 93306; 93356; 94640; 94667; 94668; 94761; 96374; 96375; 97112; 97161; 97165; 97530; 99285; J1650; J1920; J1940; J2543; J3370; J3480; Q9967